=== PATIENT | male | born 1995 | race Caucasian/White ===

== ENCOUNTER 2021-11-17 18:34 | Emergency (ER) | payer MEDICAID, SELFPAY ==
[2021-11-17 18:37] VITALS: BP 158/106; PULSE 72; RESP 24; TEMP 36; O2SAT 99; BMI 34.0
--- NOTE | 2021-11-17 18:51 | CTR_ITS ---
PROCEDURE INFORMATION: Exam: CT Abdomen And Pelvis With Contrast Exam date and time: 11/17/2021 8:09 PM Age: 26 years old Clinical indication: Abdominal pain; Patient HX: C/O sudden onset epigastric pain w n/v; Additional info: Abd pain TECHNIQUE: Imaging protocol: Computed tomography of the abdomen and pelvis with contrast. Sagittal and coronal reformatted images were created and reviewed. Radiation optimization: All CT scans at this facility use at least one of these dose optimization techniques: automated exposure control; mA and/or kV adjustment per patient size (includes targeted exams where dose is matched to clinical indication); or iterative reconstruction. Contrast material: OMNI 300; Contrast volume: 95 ml; Contrast route: INTRAVENOUS (IV); COMPARISON: No relevant prior studies available. RADIATION DOSE METRICS: Total DLP (mGy-cm): 1892.9 FINDINGS: Lungs: Visualized lungs are clear. Pleural spaces: No pleural effusion. Heart: Visualized portions of the heart are unremarkable. Liver: The liver is unremarkable. Gallbladder and bile ducts: The gallbladder is unremarkable. No biliary ductal dilatation. Pancreas: The pancreas is unremarkable. No pancreatic ductal dilatation. Spleen: The spleen is unremarkable. Adrenal glands: The right and left adrenal glands are unremarkable. Kidneys and ureters: The right kidney is unremarkable. Subcentimeter hypodense focus in the left kidney that is too small to characterize, however likely represents a small cyst. The right and left ureters are unremarkable. Stomach and bowel: No acute abnormality in the stomach. No acute abnormality in the small bowel. No acute abnormality in the colon. Appendix: Single appendicolith at the base of the appendix. Mild periappendiceal inflammation. The appendix is dilated, measuring 1.3 cm in diameter (series 2, image 60). Intraperitoneal space: No free intraperitoneal air. No ascites. No loculated fluid collections to suggest an abscess. Arteries: No evidence for aortic aneurysm or aortic dissection. Veins: Hepatic veins, portal veins, splenic vein, and SMV are patent. Lymph nodes: No lymphadenopathy. Urinary bladder: The bladder is incompletely filled, which can limit evaluation. No focal abnormality in the bladder however. Reproductive: Unremarkable as visualized. Bones/joints: No acute fracture. Soft tissues: The extra-abdominal soft tissues are unremarkable. CT/CT abdomen pelvis w con* [id number] IMPRESSION: Single appendicolith at the base of the appendix. Changes consistent with appendicitis. No evidence for appendiceal rupture. COMMENTS: 1. THIS REPORT CONTAINS FINDINGS THAT MAY BE CRITICAL TO PATIENT CARE. The findings were verbally communicated via telephone conference with ESSIE Thacker at 8:43 PM CDT on 11/17/2021. The findings were acknowledged and understood. 2. Consistent with the [employer]'s Incidental Findings Committee white paper (J Am Tanmay Radiol 2018): Any incidental renal lesion less than 1 cm or classified as too small to characterize, or any incidental cystic renal lesion characterized as simple-appearing, is likely benign. No follow-up imaging is recommended for these lesions per consensus recommendations based on imaging criteria.
--- NOTE | 2021-11-17 18:55 | ED_ITS ---
HPI - Abdominal Pain General: Chief Complaint: Abdominal Pain Stated Complaint: ABD Pain Time Seen by Provider: 11/17/21 18:46 Source: patient Mode of arrival: ambulatory Limitations: no limitations History of Present Illness: 26-year-old male states that he had sudden onset of epigastric abdominal pain 1 to 2 hours ago. States that sharp pains in his abdomen with nausea some vomiting as well. States pain is currently 9 out of 10 denies any worsening improving factors denies any chest pain denies any fevers. Associated Symptoms: Reports nausea and vomiting; Denies chills, dysuria and fever(s) Review of Systems Const: Denies: fever(s), chills, body aches or change in appetite Eyes: Denies: blurry vision or eye discomfort ENMT: Denies: throat pain or dental pain Card: Denies: chest pain Resp: Denies: dyspnea GI: Reports: abdominal pain, nausea and vomiting : Denies: dysuria Musc: Denies: neck pain or back pain Skin/Breast: Denies: rash Neuro: Denies: headache(s) Psych: Denies: depression Maksim/Lymph: Denies: easy bruising All/Imm: Denies: urticaria PFSH ED PFSH: Medical History (Updated 11/17/21 @ 20:45 by Essie Alvarado MD) No pertinent past medical history Social History (Updated 11/17/21 @ 19:02 by Essie Alvarado MD) Substance/Drug Use: unknown Physical Exam Const: COMMON NORMALS: no acute distress, patient oriented x3 and healthy appearing HENMT: COMMON NORMALS: normocephalic and atraumatic HEAD & SCALP: normocephalic and atraumatic Eye: COMMON NORMALS: Equal, round and reactive pupils present and EOMs intact bilaterally PUPIL: Yes Equal, round and reactive pupils present Neck/C-Spine: COMMON NORMALS: full ROM and supple Chest: COMMONS NORMALS: normal inspection of the chest and normal palpation of entire chest wall Resp: COMMON NORMALS: normal respiratory effort, No retractions, No use of accessory muscles and clear to auscultation bilaterally AUSCULTATION: clear to auscultation bilaterally Cardio: COMMON NORMALS: regular rate, regular rhythm and No murmurs present (Cardio) RATE: regular rate RHYTHM: regular rhythm GI: COMMON NORMALS: Normal to inspection, nondistended, normoactive bowel sounds present, Soft to palpation and no masses PALPATION: Yes Soft to palpation and Yes Tenderness to palpation present (GI) (epigastric tenderness) Extremity: COMMON NORMALS: normal to inspection and full ROM Neuro: COMMON NORMALS: patient oriented x3, moves all extremities and no focal motor deficits Psych: COMMON NORMALS: mental status grossly normal, Normal thought process present and cooperative THOUGHT PROCESS: Normal thought process present Skin: COMMON NORMALS: no rashes or lesions noted and no wounds GENERAL SKIN EXAM: no rashes or lesions noted Course Vital Signs: Vital signs: Vital Signs Temperature 96.8 F L 11/17/21 18:37 Pulse Rate 62 11/17/21 20:30 Respiratory Rate 18 11/17/21 20:30 Blood Pressure 165/97 11/17/21 20:30 Pulse Oximetry 96 11/17/21 20:30 MDM - Abdominal Pain Medical Decision Making Patient presents here with appendicitis shown on CT patient given IV antibiotics here will transfer to [facility] due to not having surgery on-call. Lab Data : 11/17/21 18:56 11/17/21 18:56 Labs/Radiology: Radiology Impressions Abdomen/Pelvis CT 11/17/21 18:51 IMPRESSION: Single appendicolith at the base of the appendix. Changes consistent with appendicitis. No evidence for appendiceal rupture. COMMENTS: 1. THIS REPORT CONTAINS FINDINGS THAT MAY BE CRITICAL TO PATIENT CARE. The findings were verbally communicated via telephone conference with ESSIE Thacker at 8:43 PM CDT on 11/17/2021. The findings were acknowledged and understood. 2. Consistent with the [employer]'s Incidental Findings Committee white paper (J Am Tanmay Radiol 2018): Any incidental renal lesion less than 1 cm or classified as too small to characterize, or any incidental cystic renal lesion characterized as simple-appearing, is likely benign. No follow-up imaging is recommended for these lesions per consensus recommendations based on imaging criteria. Laboratory Results WBC 17.5 10^3/uL (4.0-10.0) H 11/17/21 18:56 RBC 5.64 10^6/uL (4.1-5.3) H 11/17/21 18:56 Hgb 16.1 g/dL (11.7-16.6) 11/17/21 18:56 Hct 46.7 % (42.0-52.0) 11/17/21 18:56 MCV 82.8 fl (80-94) 11/17/21 18:56 MCH 28.5 pg (28.0-34.0) 11/17/21 18:56 MCHC 34.5 g/dL (30.0-36.0) 11/17/21 18:56 RDW 12.6 % (12.1-15.1) 11/17/21 18:56 Plt Count 329 10^3/cmm (130-400) 11/17/21 18:56 MPV 9.9 fL (7.4-10.4) 11/17/21 18:56 Neut % (Auto) 72.6 % 11/17/21 18:56 Lymph % (Auto) 17.9 % 11/17/21 18:56 Morris % (Auto) 6.7 % 11/17/21 18:56 Eos % (Auto) 1.7 % 11/17/21 18:56 Baso % (Auto) 0.7 % 11/17/21 18:56 Neut # (Auto) 12.66 10^3/uL (1.8-7.7) H 11/17/21 18:56 Lymph # (Auto) 3.1 10^3/uL (0.8-4.8) 11/17/21 18:56 Morris # (Auto) 1.2 10^3/uL (0.2-0.9) H 11/17/21 18:56 Eos # (Auto) 0.3 10^3/uL (0.0-0.8) 11/17/21 18:56 Baso # (Auto) 0.1 10^3/uL (0.0-0.1) 11/17/21 18:56 Nucleated RBC % (auto) 0 % 11/17/21 18:56 Nucleated RBCs # 0.0 /100WBC 11/17/21 18:56 Sodium 139 mmol/L (136-145) 11/17/21 18:56 Potassium 4.0 mmol/L (3.5-5.1) 11/17/21 18:56 Chloride 104 mmol/L (98-107) 11/17/21 18:56 Carbon Dioxide 22 mmol/L (22-29) 11/17/21 18:56 Anion Gap 17.0 (5-19) 11/17/21 18:56 BUN 8 mg/dL (6-20) 11/17/21 18:56 Creatinine 1.1 mg/dL (0.7-1.2) 11/17/21 18:56 GFR Calculation 81.6 mL/min (90-130) L 11/17/21 18:56 Glucose 108 mg/dL (65-115) 11/17/21 18:56 Calculated Osmolality 287 mOsm/kg (285-295) 11/17/21 18:56 Calcium 8.6 mg/dL (8.5-10.5) 11/17/21 18:56 Total Bilirubin 0.2 mg/dL (0.15-1.2) 11/17/21 18:56 AST 35 U/L (0-40) 11/17/21 18:56 ALT 28 U/L (0-41) 11/17/21 18:56 Alkaline Phosphatase 62 IU/L (40-130) 11/17/21 18:56 Total Protein 6.7 g/dL (6.6-8.7) 11/17/21 18:56 Albumin 4.7 g/dL (3.5-5.2) 11/17/21 18:56 Globulin 2.0 g/dL (1.3-4.6) 11/17/21 18:56 Lipase 14 U/L (13-60) 11/17/21 18:56 Urine Color Yellow (Yellow) 11/17/21 20:06 Urine Appearance Clear (CLEAR) 11/17/21 20:06 Urine pH 7 (5-7) 11/17/21 20:06 Ur Specific [place] 1.010 (1.005-1.030) 11/17/21 20:06 Urine Protein Neg (Negative) 11/17/21 20:06 Urine Glucose (UA) Norm (Normal) 11/17/21 20:06 Urine Ketones Negative (Negative) 11/17/21 20:06 Urine Blood Neg (Negative) 11/17/21 20:06 Urine Nitrate Negative (Negative) 11/17/21 20:06 Urine Bilirubin Neg (Negative) 11/17/21 20:06 Urine Urobilinogen 1 mg/dL (Negative) H 11/17/21 20:06 Ur Leukocyte Esterase Negative (Negative) 11/17/21 20:06 Discharge Plan Discharge Patient Disposition: Xfer Short-Term Hosp Clinical Impression: Acute appendicitis Condition: Stable Patient Instructions: Appendicitis (GEN) Coding Level of Care Code ED Door Builder for Chg Fwd Exam Comprehensive
[2021-11-17 18:59] VITALS: RESP 20
[2021-11-17] MEDS: sodium chloride 0.9% 1,000 ML 999 ML IV (18:59)
[2021-11-17] MEDS: morphine 4 mg/mL SDV 1 mL IVP (18:59)
[2021-11-17] MEDS: ondansetron 2 mg/ML SDV 2 mL 4 MG IVP (18:59)
[2021-11-17 19:01] LABS: Basophils # 0.1 10^3/uL (0.0-0.1); Basophils % 0.7 %; Eosinophils # 0.3 10^3/uL (0.0-0.8); Eosinophils % 1.7 %; Hematocrit 46.7 % (42.0-52.0); Hemoglobin 16.1 g/dL (11.7-16.6); Lymphocytes # 3.1 10^3/uL (0.8-4.8); Lymphocytes % 17.9 %; Mean Corpuscular HGB Conc 34.5 g/dL (30.0-36.0); Mean Corpuscular Hemoglobin 28.5 pg (28.0-34.0); Mean Corpuscular Volume 82.8 fl (80-94); Mean Platelet Volume 9.9 fL (7.4-10.4); Monocytes # 1.2 10^3/uL (0.2-0.9); Monocytes % 6.7 %; Neutrophils # 12.66 10^3/uL (1.8-7.7); Neutrophils % 72.6 %; Nucleated Red Blood Cells % 0 %; Platelet Count 329 10^3/cmm (130-400); Red Blood Count 5.64 10^6/uL (4.1-5.3); Red Cell Distribution Width 12.6 % (12.1-15.1); White Blood Count 17.5 10^3/uL (4.0-10.0)
[2021-11-17 19:19] LABS: Alanine Aminotransferase 28 U/L (0-41); Albumin Level 4.7 g/dL (3.5-5.2); Alkaline Phosphatase 62 IU/L (40-130); Aspartate Amino Transferase 35 U/L (0-40); Blood Urea Nitrogen 8 mg/dL (6-20); Calcium 8.6 mg/dL (8.5-10.5); Carbon Dioxide 22 mmol/L (22-29); Chloride 104 mmol/L (98-107); Glomerular Filtration Rate 81.6 mL/min (90-130); Glucose 108 mg/dL (65-115); Lipase 14 U/L (13-60); Osmolality Calculated 287 mOsm/kg (285-295); Sodium 139 mmol/L (136-145); Total Bilirubin 0.2 mg/dL (0.15-1.2); Total Protein 6.7 g/dL (6.6-8.7)
[2021-11-17] MEDS: iohexol 300 mg/mL 100 mL Btl IV (20:16)
[2021-11-17 20:19] LABS: Add Urine Microscopic? NO; Charge for UA Resulting for Rev
[2021-11-17 20:26] LABS: Bilirubin Urine Neg (Negative); Blood Urine Neg (Negative); Glucose Urine UA Norm (Normal); Ketones Urine Negative (Negative); Leukocyte Esterase Urine Negative (Negative); Nitrate Urine Negative (Negative); Protein Urine Neg (Negative); Urine Appearance Clear (CLEAR); Urine Color Yellow (Yellow); Urobilinogen Urine 1 mg/dL (Negative); pH Urine 7 (5-7)
[2021-11-17 20:30] VITALS: BP 165/97; PULSE 62; RESP 18; O2SAT 96
[2021-11-17] MEDS: diphenhydrAMINE 50 mg/mL SDV 1mL IVP (20:42)
[2021-11-17] MEDS: metoclopramide 5 mg/mL SDV 2 mL 10 MG IVP (20:49)
[2021-11-17] MEDS: piperacillin-tazobactam 3.375 GM in sodium chloride 0.9% (plus) 100 ML IV (21:15)
[2021-11-17 21:30] VITALS: BP 157/101; PULSE 62; RESP 21; O2SAT 97
[2021-11-17 22:22] VITALS: BP 158/105; PULSE 78; RESP 16; O2SAT 96
== END 2021-11-17 22:29 | disposition short-term general hospital (02) ==
PROVIDERS: Emergency Provider Emergency Medicine
DX: K35.80 Unspecified acute appendicitis (principal)
CPT/HCPCS: 74177; 80053; 81003; 83690; 85025; 96365; 96375; 99285; J1200; J2270; J2405; J2543; J2765; J7030; Q9967

== ENCOUNTER → 2022-03-05 15:25 | Outpatient (BNVA) | payer OTHER, SELFPAY | PROVIDERS: Visit Provider Family Medicine | DX: M25.532 Pain in left wrist (principal); S62.102A Fracture of unspecified carpal bone, left wrist, initial encounter for closed fracture; X58.XXXA Exposure to other specified factors, initial encounter | CPT/HCPCS: 73110 ==